=== PATIENT | female | born 1975 | race American Indian/Alaskan Native ===

== ENCOUNTER 2020-07-24 03:26 | Inpatient (IN) | payer SELFPAY ==
[2020-07-24] MEDS ORDERED: LACTATED RINGERS 1,000 ML ONE (03:44)
[2020-07-24] MEDS ORDERED: fentaNYL 100 MCG/2 ML INJ ONE (03:54)
[2020-07-24] MEDS ORDERED: fentaNYL 100 MCG/2 ML INJ IV ONE (03:56)
[2020-07-24] MEDS ORDERED: LACTATED RINGERS 1,000 ML IV SCH (04:00)
[2020-07-24 04:24] LABS: Hematocrit 32.4 % (30.3-42.9); Hemoglobin 10.8 gm/dl (10.1-14.3); Mean Corpuscular HGB Conc 33 % (30-34); Mean Corpuscular Volume 89 fl (79-97); Platelet Count 173 K/mm3 (140-440); Red Blood Count 3.64 M/mm3 (3.65-5.03); Red Cell Distribution Width 14.7 % (13.2-15.2)
--- NOTE | 2020-07-24 04:31 | History and Physical Report ---
History of Present Illness Date of examination: 07/24/20 Date of admission: 07/24/20 03:45 Chief complaint: Labor History of present illness: Pt is a 44 yo at 37w6d who presented with regular uterine contractions and an urge to push. She states her water broke at 0200, and contractions soon followed. She has received care with [facility] since the first trimester, co-managed with [facility]. 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 She is GBS negative. The patient delivered in triage at 0315. No heart tones were auscultated due to imminent delivery. This provider was notified of delivery at 0347. 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: chlamydia (cured this ), herpes (type 2 seropositive without lesion or prodrome, on Valtrex suppression) Social history: other (no health insurance) - Obstetrical History Expected Date of Delivery: 08/08/20 Actual Gestation: 37 Week(s) 6 Day(s) : 6 Para: 2 Hx # Term Pregnancies: 2 Spontaneous Abortions: 2 Induced : 1 Number of Living Children: 2 Medications and Allergies Allergies Allergy/AdvReac Type Severity Reaction Status Date / Time No Known Allergies Allergy Verified 07/24/20 03:54 Active Meds: Active Medications Lactated Ringer's (Lactated Ringers) 1,000 mls @ 125 mls/hr IV DIRECT ABRAHAN Review of Systems Genitourinary: leakage of fluid, contractions - Vital Signs Vital signs: Vital Signs Pulse BP 79 115/73 07/24/20 03:45 07/24/20 03:45 Temp Pulse Resp BP Pulse Ox 73 22 108/65 07/24/20 04:15 07/24/20 03:55 07/24/20 04:15 - Physical Exam Abdomen: Positive: soft Genitourinary (Female): Positive: normal external genitalia. Negative: perineal/vulvar lesions Uterus: Positive: enlarged Results Result Diagrams: 07/24/20 03:40 All other labs normal. Assessment and Plan A: 44 yo at 37w6d EGA Precipitous delivery Hepatitis B without workup this due to cost A1GDM HSV2 seropositive without lesion or prodrome, on Valtrex suppression Advanced maternal age Chlamydia this , cured GBS negative P: Admit to L&D, routine care NICU aware of status ID and case management consults
--- NOTE | 2020-07-24 04:37 | Procedure Note ---
OB Delivery Note - Delivery Date of Delivery: 07/24/20 Surgeon: ELYSIA WARE (CNM) Estimated blood loss: 200cc - Vaginal Delivery presentation: vertex Delivery position: OA Intrapartum events: PROM->1hr before delivery, precipitous labor- <3hr Delivery induction: none Delivery monitor: none Route of delivery: Delivery placenta: spontaneous Delivery cord: 3 umbilical vessels Episiotomy: none Delivery laceration: none Anesthesia: none Delivery comments: Pt presented to triage in second stage of labor. delivered at 0315 with AMPARO Romero. Apgars 8/9. This CNM was notified of delivery at 0347. Arrived at 0418, placenta in vagina, delivered spontaneously and intact, EBL 200cc. Pitocin IV infusing. No lacerations noted. - Infant A at 1 minute: 8 at 5 minutes: 9
[2020-07-24] MEDS ORDERED: OXYTOCIN DRIP 30,000 MILLIUNITS/500 ML BAG IV ONE (04:44)
[2020-07-24] MEDS ORDERED: MAGNESIUM HYDROXIDE (MOM) ORAL LIQD UDC PO PRN (04:53)
[2020-07-24] MEDS ORDERED: diphenhydrAMINE 25 MG CAP PO PRN (04:53)
[2020-07-24] MEDS ORDERED: PROMETHAZINE 25 MG TAB PO PRN (04:53)
[2020-07-24] MEDS ORDERED: WITCH HAZEL/ GLYCERIN PAD TP PRN (04:53)
[2020-07-24] MEDS ORDERED: PROMETHAZINE 25 MG RECT SUPP PR PRN (04:53)
[2020-07-24] MEDS ORDERED: ONDANSETRON 4 MG/2 ML INJ IV PRN (04:53)
[2020-07-24] MEDS ORDERED: LANOLIN/ZINC/DIMETHICONE (LANSINOH) 7 GM TP PRN (04:53)
[2020-07-24] MEDS ORDERED: OXYTOCIN DRIP 30 UNITS/500 ML BAG IV SCH (05:00)
[2020-07-24] MEDS: IBUPROFEN 600 MG TAB PO SCH ×3 (05:32→21:27)
[2020-07-24 17:45] LABS: Hematocrit 30.1 % (30.3-42.9)
[2020-07-25] MEDS: IBUPROFEN 600 MG TAB PO SCH ×5 (06:00→16:49)
--- NOTE | 2020-07-25 10:17 | Progress Note ---
Assessment and Plan A: PPD1 s/p Hepatitis B Vital signs stable Mild acute on chronic anemia due to and blood loss P: Ferrous sulfate supplementation ID consult outpatient Subjective - Subjective Date of service: 07/25/20 Principal diagnosis: s/p Interval history: PPD1 s/p Patient reports: appetite normal, voiding normally, pain well controlled, ambulating normally : doing well Objective - Vital Signs Latest vital signs: Vital Signs Temp Pulse Resp BP BP Pulse Ox 07/25/20 08:09 98.3 F 81 18 96/68 96 07/25/20 06:00 18 07/25/20 04:00 98.3 F 84 17 138/70 98 07/25/20 00:00 18 07/24/20 23:09 98.2 F 83 20 103/65 98 07/24/20 23:00 18 07/24/20 19:40 98.1 F 07/24/20 19:33 80 111/68 07/24/20 16:43 81 115/62 Intake and Output 07/24/20 07/25/20 07/25/20 23:59 07:59 15:59 Intake Total 360 240 Output Total 250 Balance -250 360 240 Intake: Oral 240 Intake, Free Water 360 Output: Urine 250 Void 250 Other: Total, Intake Amount 240 Total, Output Amount 250 # Voids Void 1 1 - Exam Abdomen: Present: soft. Absent: distention Uterus: Present: firm. Absent: bogginess Extremities: Present: normal - Labs Labs: Abnormal lab results 07/24/20 Range/Units 17:33 Hgb 10.0 L (10.1-14.3) gm/dl Hct 30.1 L (30.3-42.9) %
[2020-07-25] MEDS: FERROUS SULFATE 325 MG TAB PO SCH (10:48)
[2020-07-26] MEDS: IBUPROFEN 600 MG TAB PO SCH ×2 (01:00→15:46)
--- NOTE | 2020-07-26 07:33 | Progress Note ---
Assessment and Plan A: PPD2 s/p Hepatitis B Vital signs stable Mild acute on chronic anemia due to and blood loss P: Scheduled Motrin, heating pad Ferrous sulfate supplementation ID consult outpatient Discharge to home today Subjective - Subjective Date of service: 07/26/20 Principal diagnosis: s/p Interval history: PPD2 s/p Patient reports: appetite normal, voiding normally, pain poorly controlled (uterine cramping), ambulating normally : doing well Objective - Vital Signs Latest vital signs: Vital Signs Temp Pulse Resp BP Pulse Ox 07/26/20 00:30 98.7 F 88 20 110/63 98 07/25/20 17:09 98.5 F 93 H 18 101/60 98 07/25/20 08:09 98.3 F 81 18 96/68 96 Intake and Output 07/25/20 07/25/20 07/26/20 15:59 23:59 07:59 Intake Total 240 1800 480 Output Total 300 Balance -60 1800 480 Intake: Oral 240 840 480 Intake, Free Water 960 Output: Urine 300 Void 300 Other: Total, Intake Amount 240 840 240 Total, Output Amount 300 # Voids Void 2 1 1 - Exam Abdomen: Present: soft. Absent: distention Uterus: Present: firm, fundal height below umbilicus. Absent: bogginess Extremities: Present: normal
--- NOTE | 2020-07-26 07:35 | Discharge Summary ---
Providers - Providers Date of Admission: 07/24/20 03:45 Date of discharge: 07/26/20 Attending physician: ELSY LEMA MD 07/24/20 Consult to Case Management [CONS] Routine Services Needed at Discharge: [employer] Notified:: NONE Comment:: Pt is uninsured and will need an infectious disease consult Primary care physician: ELSY LEMA MD Hospitalization Reason for admission: active labor, IUP at term Delivery: Other procedures: none complications: none Discharge diagnosis: IUP at term delivered [place] baby: female Hospital course: Pt arrived in second stage of labor and delivered a viable female infant in triage. Her course was uneventful. Condition at discharge: Good Disposition: DC-01 TO HOME OR SELFCARE Plan - Discharge Medications Prescriptions: Ferrous Sulfate [Feosol 325 MG tab] 325 mg PO QDAY #60 tablet Ibuprofen [Motrin 600 MG tab] 600 mg PO Q6HR #60 tablet - Provider Discharge Summary Activity: routine, no sex for 6 weeks, no heavy lifting 4 weeks, no strenuous exercise Diet: routine Instructions: routine Additional instructions: [] Smoking cessation referral if applicable(refer to patient education folder for contact #) [] Refer to [facility]'s [facility] Booklet Call your doctor immediately for: * Fever > 100.5 * Heavy vaginal bleeding ( >1 pad per hour) * Severe persistent headache * Shortness of breath * Reddened, hot, painful area to leg or breast * Drainage or odor from incision. * Keep incision clean and dry at all times and follow doctor's instructions regarding bathing/showering - Follow up plan Follow up: ELYSIA WARE CNM [Advanced Practice Nurse] - 14 Days (Please call office to schedule appointment.) Forms: [facility] Discharge Summary
[2020-07-26] MEDS: FERROUS SULFATE 325 MG TAB PO SCH (10:40)
[2020-07-26 15:58] VITALS: BP 113/69
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
== END 2020-07-26 21:35 | disposition home or self-care (01) | DRG 806 ==
LOC: TRG 03:26 → LD 03:32 → TRG 03:42 → LD 03:45 → OB 21:33
PROVIDERS: ADMIT Obstetrics & Gynecology; ATTEND Obstetrics & Gynecology
PROC: 10E0XZZ Delivery of Products of Conception, External Approach (ICD-10-PCS; principal; 2020-07-24)
DX: O62.3 Precipitate labor (principal); O98.32 Other infections with a predominantly sexual mode of transmission complicating childbirth; Z37.0 Single live birth; D62 Acute posthemorrhagic anemia; A60.09 Herpesviral infection of other urogenital tract; Z3A.37 37 weeks gestation of pregnancy; Z20.828 Contact with and (suspected) exposure to other viral communicable diseases
CPT/HCPCS: 36415; 85014; 85018; 85027; 86592; 86850; 86900; 86901; G0378; A6250; J3010; J7120; U0003